=== PATIENT | female | born 1965 | race Hispanic/Latino ===

== ENCOUNTER 2019-08-10 04:35 | Emergency (ER) | payer MEDICARE ==
[~2019-08-10] VITALS: Ht 154.9 cm; Wt 93.4 kg
[2019-08-10] MEDS ORDERED: DIAZEPAM 5 MG TAB PO PRN (05:15)
[2019-08-10] MEDS ORDERED: DIAZEPAM 2 MG TAB PO ONE (05:15)
[2019-08-10] MEDS ORDERED: KETOROLAC TROMETHAMINE 60 MG/2 ML VIAL IM ONE (05:15)
--- NOTE | 2019-08-10 05:50 | Diagnostic Imaging Report ---
CT CERVICAL SPINE WO HISTORY: Neck pain radiates to both arms COMPARISON: None. TECHNIQUE: CT of the cervical spine without contrast. Sagittal and coronal reformations were created. One or more of the following dose reduction techniques were used: Automated exposure control, adjustment of the mA and/or kV according to patient size, and/or utilization of iterative reconstruction technique. FINDINGS: Cervical lordosis is straightened. There is no scoliosis or subluxation. No fractures, compression deformity, or destructive osseous lesions are seen. The craniocervical junction is intact. No gross spinal canal masses are seen. The paravertebral and paraspinal soft tissues are unremarkable. The disc spaces are preserved with minimal spondylotic changes. Mild atlantoaxial arthrosis is present as well. No gross canal or foraminal stenosis seen. Possible small right-sided tracheal diverticula just above the thoracic inlet. A few subcentimeter hypodense bilateral thyroid nodules are present; no further imaging is indicated. IMPRESSION: 1. No acute osseous abnormalities. 2. Minimal spondylosis. No gross canal or foraminal stenosis. Signed by: Dr. Wilbur Martinez M.D. on 08/10/2019 5:47 AM
[2019-08-10 06:32] VITALS: BP 138/80
--- OUTSIDE RECORDS SUMMARY | 2019-08-10 06:49 | XMS REPORT ---
[facility] [place] Unavailable Care Team Providers Care Director Of Infection Prevention Name Role Phone Unavailable Unavailable Problems This patient has no known problems. Allergies, Adverse Reactions, Alerts This patient has no known allergies or adverse reactions. Medications This patient has no known medications. Results Test Description Test Time Test Comments Text Results Atomic Results Result Comments CT CERVICAL SPINE WO 2019-08-10 05:40:00 [facility] [address] [address] Patient Name: Inocencia BROWN MR #: [id number] : 1965 Age/Sex: 54/F Req #: [id number] Adm Physician: Ordered by: PATRICK SALGUERO DO Report #: [id number] Location: ER Room/Bed: Procedure: [id number] CT/CT CERVICAL SPINE WO Exam Date: 08/10/19 Exam Time: 0520 REPORT STATUS: Signed CT CERVICAL SPINE WO HISTORY: Neck pain radiates to both arms COMPARISON: None. TECHNIQUE: CT of the cervical spine without contrast. Sagittal and coronal reformations were created. One or more of the following dose reduction techniques were used: Automated exposure control, adjustment of the mA and/or kV according to patient size, and/or utilization of iterative reconstruction technique. FINDINGS: Cervical lordosis is straightened. There is no scoliosis or subluxation. No fractures, compression deformity, or destructive osseous lesions are seen. The craniocervical junction is intact. No gross spinal canal masses are seen. The paravertebral and paraspinal soft tissues are unremarkable. The disc spaces are preserved with minimal spondylotic changes. Mild atlantoaxial arthrosis is present as well. No gross canal or foraminal stenosis seen. Possible small right-sided tracheal diverticula just above the thoracic inlet. A few subcentimeter hypodense bilateral thyroid nodules are present; no further imaging is indicated. IMPRESSION: 1. No acute osseous abnormalities. 2. Minimal spondylosis. No gross canal or foraminal stenosis. Signed by: Dr. Wilbur Martinez M.D. on 08/10/2019 5:47 AM Dictated By: WILBUR MARTINEZ MD 6 Transcribed By: ALFONZO on 08/10/19546 COPY TO: PATRICK SALGUERO DO
== END 2019-08-10 06:30 | disposition home or self-care (01) ==
LOC: ER 04:35
DX: M54.12 Radiculopathy, cervical region (principal)
CPT/HCPCS: 72125; 99283; J1885

== ENCOUNTER 2020-10-07 07:29 | Emergency (ER) | payer MEDICARE, OTHER ==
[~2020-10-07] VITALS: Ht 154.9 cm; Wt 99.8 kg
[2020-10-07] MEDS ORDERED: SODIUM CHLORIDE 0.9% 1000ML 1,000 ML IV STA (07:43)
[2020-10-07] MEDS ORDERED: PANTOPRAZOLE 40 MG 10ML VIAL IV STA (07:43)
[2020-10-07 08:07] LABS: BASOPHILS # (AUTO) 0.1 (0.0-0.1); BASOPHILS % 0.6 % (0.0-1.0); EOSINOPHILS # (AUTO) 0.1 (0.0-0.4); EOSINOPHILS % 0.8 % (0.0-6.0); HEMATOCRIT 42.8 % (34.2-44.1); LYMPHOCYTES # (AUTO) 3.1 (1.0-3.2); LYMPHOCYTES % 33.5 % (18.0-39.1); MEAN CORPUSCULAR HEMOGLOBIN 27.7 pg (28-32); MEAN CORPUSCULAR HGB CONC 32.7 g/dL (31-35); MEAN CORPUSCULAR VOLUME 84.8 fL (81-99); MONOCYTES # (AUTO) 0.4 (0.2-0.8); MONOCYTES % 4.8 % (4.4-11.3); NEUTROPHILS # (AUTO) 5.5 (2.1-6.9); NEUTROPHILS % 59.1 % (38.7-80.0); PLATELET COUNT 335 x10e3/uL (140-360); RED BLOOD COUNT 5.05 x10e6/uL (3.6-5.1)
[2020-10-07 08:11] LABS: CLARITY,URINE CLEAR (CLEAR); COLOR,URINE YELLOW (YELLOW); KETONES,URINE NEGATIVE (NEGATIVE); LEUKOCYTE ESTERASE ,URINE NEGATIVE (NEGATIVE); NITRITE,URINE NEGATIVE (NEGATIVE); PROTEIN,URINE DIPSTICK NEGATIVE (NEGATIVE); URINE UROBILINOGEN 0.2 mg/dL (0.2 - 1)
[2020-10-07 08:14] LABS: AMPHETAMINES SCREEN,URINE NEGATIVE (NEGATIVE); BENZODIAZEPINES SCREEN,URINE NEGATIVE (NEGATIVE); PHENCYCLIDINE SCREEN,URINE NEGATIVE (NEGATIVE)
[2020-10-07 08:25] LABS: INR 0.85; PROTHROMBIN TIME 12.2 seconds (11.9-14.5)
[2020-10-07 08:26] LABS: PARTIAL THROMBOPLASTIN TIME 32.5 seconds (23.8-35.5)
[2020-10-07 08:28] LABS: ALANINE AMINOTRANSFERASE 22 IU/L (0-55); ALBUMIN 4.4 g/dL (3.5-5.0); ALBUMIN/GLOBULIN RATIO 1.1 (0.8-2.0); ALKALINE PHOSPHATASE 87 IU/L (40-150); ANION GAP 21.9 mmol/L (8-16); BLOOD UREA NITROGEN 8 mg/dL (7-26); BUN/CREATININE RATIO 12 (6-25); CALCIUM 9.4 mg/dL (8.4-10.2); CARBON DIOXIDE 18 mmol/L (22-29); CHLORIDE 107 mmol/L (98-107); CREATINE KINASE 323 IU/L (29-168); CREATININE, SERUM 0.69 mg/dL (0.57-1.11); EST GLOMERULAR FILTRATION RATE > 60 ML/MIN (60-); GLUCOSE 185 mg/dL (74-118); LIPASE 34 U/L (8-78); MAGNESIUM 1.9 MG/DL (1.3-2.1); POTASSIUM 3.9 mmol/L (3.5-5.1); SODIUM 143 mmol/L (136-145)
[2020-10-07 08:39] LABS: BACTERIA,URINE RARE /HPF; EPITHELIAL CELLS,URINE RARE /LPF; WBC,URINE (MAN) 0-5 /HPF (0-5)
[2020-10-07] MEDS ORDERED: SODIUM CHLORIDE 0.9% 50ML 50 ML ONE (09:30)
[2020-10-07] MEDS ORDERED: IOPAMIDOL 370 MG/ML 200 ML INFUS..BTL INJ ONE (09:31)
== END 2020-10-07 11:45 | disposition home or self-care (01) ==
LOC: ER 08:21
DX: R06.02 Shortness of breath (principal); R07.9 Chest pain, unspecified; R73.9 Hyperglycemia, unspecified; F14.10 Cocaine abuse, uncomplicated; F10.129 Alcohol abuse with intoxication, unspecified; Z20.822 Contact with and (suspected) exposure to COVID-19; F32.9 Major depressive disorder, single episode, unspecified; M54.9 Dorsalgia, unspecified; G89.29 Other chronic pain
CPT/HCPCS: 36415; 71045; 71260; 80053; 80307; 80320; 81001; 82550; 82553; 83690; 83735; 83880; 84484; 85025; 85379; 85610; 85730; 87086; 93005; 99284; C9113; J7030; Q9967; U0002